=== PATIENT | female | born 1930 | race Caucasian/White ===

== ENCOUNTER 2016-04-24 19:47 | Emergency (ER) | payer MEDICARE ==
[~2016-04-24] VITALS: Ht 157.4 cm; Wt 49.9 kg
[~2016-04-24 19:47] MED LIST: ALAVERT10 M1 PO; ALENDRONATE SOD70 M1 PO; AMOXICILLIN500 M3 PO; ARICEPT ODT10 MG PO; ARICEPT10 M1 PO; ARICEPT10 MG PO; ASPIR LOW81 MG PO; ASPIRIN81 M1 PO; AUGMENTIN 500 M1 TAB PO; AUGMENTIN 875875 MG PO; BESIVANCE 5 ML5 ML OP; CARDIZEM CD120 MG PO; CARDIZEM CD180 MG PO; CARDIZEM CD240 MG PO; CATAPRES0.1 MG PO; COUMADIN1 M1 PO; COUMADIN2 M1 PO; COUMADIN2 MG PO; COUMADIN2.5 M1 PO; COUMADIN4 M2 PO; COUMADIN5 M2 PO; DILTIAZEM CD240 MG PO; DOXYCYCLINE100 M3 PO; DUREZOL 5 ML5 ML OP; ECOTRIN325 M1 PO; ECOTRIN325 MG PO; FERROUS SULFAT325 MG PO; FLAGYL500 MG PO; FUROSEMIDE20 M1 PO; FUROSEMIDE20 MG PO; HYDR12.5C PO; IRON325 M1 PO; LASIX20 MG PO; LEVAQUIN750 M1 PO; LEVOFLOXACIN500 MG PO; LISINOPRIL AND1 TA2 PO; LISINOPRIL10 MG PO; LISINOPRIL20 MG PO; LISINOPRIL40 MG PO; MACROBID100 M1 PO; MACRODANTIN100 M1 PO; MACRODANTIN100 MG PO; NITROFURANTOIN100 M9 PO; NKHM; OYSTER SHELL C1 EAC2 PO; PREDNISONE10 MG PO; PROLENSA3 ML OP; RISPERDAL1 MG PO; SIMBRINZA 1%-0.28 ML OP; TYLENOL W/CODEI1 TA4 PO; TYLENOL325 M2 PO; VICODIN 5/500 505 MG PO; VOLTAREN GEL1% TP; WARFARIN2 MG PO; ZESTRIL10 MG PO
[2016-04-24] MEDS ORDERED: TYLENOL325 M2 PO (19:57)
[2016-04-24 20:41] LABS: BASO % 0.4 % (0.0-1.0); EOS # 0.1 10*3/uL (0.0-0.4); EOS % 1.7 % (1.0-4.0); HEMATOCRIT 33.9 % (37.0-47.0); HEMOGLOBIN 10.8 g/dl (12.0-16.0); LYMPH % 20.4 % (27.0-41.0); MEAN CELL VOLUME 100.9 fl (81.0-99.0); MEAN CORPUSCULAR HGB 32.1 pg (27.0-31.0); MEAN CORPUSCULAR HGB CONC 31.9 g/dl (33.0-37.0); MEAN PLATELET VOLUME 9.6 fl (9.6-12.3); MONO # 0.5 10*3/uL (0.1-1.0); MONO % 9.8 % (3.0-9.0); NEUT # 3.2 10*3/uL (2.3-7.9); NEUT % 67.5 % (47.0-73.0); PLATELET COUNT AUTOMATED 133 10*3/uL (130-400); RED BLOOD COUNT 3.36 10*6/uL (4.10-5.10); RED CELL DISTRI WIDTH 13.2 % (0-14.5); WHITE BLOOD COUNT 4.8 10*3/uL (4.8-10.8)
[2016-04-24 20:58] LABS: ALBUMIN 3.6 gm/dl (3.1-4.5); ALKALINE PHOSPHATASE 142 U/L (45-117); BILIRUBIN, TOTAL 0.4 mg/dl (0.2-1.0); BUN 24 mg/dl (7-24); C-REACTIVE PROTEIN 1.84 MG/DL (0-0.3); CARBON DIOXIDE 24 mmol/L (21-32); CHLORIDE 111 mmol/L (98-107); EST GLOM FILT AFRICAN AMERICAN > 60 ml/min; GLUCOSE 82 mg/dL (65-99); POTASSIUM 4.5 mmol/L (3.5-5.1); SGOT/AST 18 IU/L (3-35); SGPT/ALT 18 U/L (12-78); SODIUM 146 mmol/L (136-145); TOTAL PROTEIN 6.6 gm/dL (6.4-8.2)
[2016-04-24 20:59] LABS: BILIRUBIN NEGATIVE (NEGATIVE); BLOOD NEGATIVE (NEGATIVE); CLARITY CLEAR (CLEAR); COLOR YELLOW (YELLOW); GLUCOSE NEGATIVE (NEGATIVE); KETONE TRACE (NEGATIVE); LEUKO ESTERASE NEGATIVE (NEGATIVE); NITRITE NEGATIVE (NEGATIVE); PH 5.5 (5.0-9.0); PROTEIN TRACE (NEGATIVE); UROBILINOGEN 0.2 E.U./dl (0.2-1.0)
[2016-04-24 20:59] LABS: TROPONIN I < 0.015 ng/ml (<0.5)
[2016-04-24 21:11] LABS: MUCOUS TRACE; RBC 0-2 rbc/hpf (0-2); URINE REFLEX COMMENT NO (NO)
[2016-04-24] MEDS ORDERED: ZITHROMAX250 MG PO (22:21)
[2016-04-24] MEDS ORDERED: ROBITUSSIN DM 105 ML PO (22:21)
[2016-05-03] MEDS ORDERED: TYLENOL W/ CODEI5 ML PO (02:07)
[2016-05-13] MEDS ORDERED: SIMVASTATIN10 MG PO (14:58)
[2016-05-13] MEDS ORDERED: MARINOL2.5 M1 PO ×2 (14:59→15:00)
== END 2016-04-24 23:17 | disposition home or self-care (01) ==
LOC: ED 19:47
PROVIDERS: Emergency Medicine Emergency Medical Services
DX: J40 Bronchitis, not specified as acute or chronic (principal); M19.90 Unspecified osteoarthritis, unspecified site; F17.200 Nicotine dependence, unspecified, uncomplicated; I10 Essential (primary) hypertension; Z79.01 Long term (current) use of anticoagulants; Z79.82 Long term (current) use of aspirin

== ENCOUNTER → 2016-08-17 | Outpatient (CLI) | payer MEDICARE, MEDICAID ==
[~2016-08-17] MED LIST changes: +MARINOL2.5 M1 PO; +NAMENDA-28 PO; +PROVENTIL0.09 MG/A1 INH; +ROBITUSSIN DM 105 ML PO; +SIMVASTATIN10 MG PO; +TRAZODONE50 MG PO; +TYLENOL W/ CODEI5 ML PO; +ZITHROMAX250 MG PO
[2016-08-17 16:44] LABS: HEMATOCRIT 39.8 % (37.0-47.0); HEMOGLOBIN 12.6 g/dl (12.0-16.0); MEAN CELL VOLUME 95.4 fl (81.0-99.0); MEAN CORPUSCULAR HGB 30.2 pg (27.0-31.0); MEAN CORPUSCULAR HGB CONC 31.7 g/dl (33.0-37.0); MEAN PLATELET VOLUME 9.3 fl (9.6-12.3); RED BLOOD COUNT 4.17 10*6/uL (4.10-5.10); RED CELL DISTRI WIDTH 14.3 % (0-14.5); WHITE BLOOD COUNT 5.2 10*3/uL (4.8-10.8)
[2016-08-17 17:00] LABS: ALBUMIN 3.5 gm/dl (3.1-4.5); ALKALINE PHOSPHATASE 133 U/L (45-117); BILIRUBIN, TOTAL 0.5 mg/dl (0.2-1.0); BUN 21 mg/dl (7-24); CARBON DIOXIDE 27 mmol/L (21-32); CHLORIDE 109 mmol/L (98-107); EST GLOM FILT AFRICAN AMERICAN > 60 ml/min; GLUCOSE 97 mg/dL (65-99); POTASSIUM 3.8 mmol/L (3.5-5.1); SGOT/AST 23 IU/L (3-35); SGPT/ALT 20 U/L (12-78); SODIUM 147 mmol/L (136-145); TOTAL PROTEIN 6.7 gm/dL (6.4-8.2)
== END | disposition home or self-care (01) ==
LOC: LAB 15:48
PROVIDERS: Family Medicine
DX: J44.9 Chronic obstructive pulmonary disease, unspecified (principal); I51.7 Cardiomegaly; D64.9 Anemia, unspecified; E55.9 Vitamin D deficiency, unspecified; I48.91 Unspecified atrial fibrillation; I10 Essential (primary) hypertension; J90 Pleural effusion, not elsewhere classified; J98.11 Atelectasis; Z95.0 Presence of cardiac pacemaker

== ENCOUNTER 2016-08-18 14:47 | Inpatient (IN) | payer MEDICARE, MEDICAID ==
[~2016-08-18] VITALS: Ht 149.9 cm; Wt 52.2 kg
--- NOTE | ~2016-08-18 | PR ---
[place], [place] PROGRESS NOTE NAME: OLEG BURGESS [facility] #: [id number] UNIT #: [id number] ROOM: 524 DOCTOR: GAVI MOSES MD,JENNIFER BIRTHDATE: [birth year] DOS: 08/23/2016 SUBJECTIVE: She has been comfortably resting on the bed without any distress. Denies symptoms of chest pain, coughing or any sputum expectoration. OBJECTIVE: VITAL SIGNS: Shows normal temperature, respiratory rate 20, heart rate 70, blood pressure 123/64. The pulse oxygen saturation of the patient recorded on room air 98% saturation. HEENT: Showed no acute change. NECK: Supple. CARDIOVASCULAR SYSTEM: S1, S2 is audible. LUNGS: Noted without any crackles, rhonchi, or wheezing. ABDOMEN: Soft, nontender. LABORATORY DATA: Chest x-ray of the patient that was done this morning shows a small right pleural fluid without any significant increase patient after thoracentesis. Left lung for the patient noted essentially clear. Pacemaker noted in place. IMPRESSION: The patient with resolving congestive heart failure, pleural fluid, status post thoracentesis the patient and the respiratory complaints progressively. Pneumonia was also suspected which has been treated with antibiotics. PLAN OF TREATMENT: No changes in plan of management. Discharge planning for the patient will be started on the patient for discharge to the long term facility. In the meantime, other previous therapy, plan of management to be continued. Antibiotics could be discontinued the patient prior to the discharge. Continue diuretic therapy. JENNIFER GATICA MD CM:PNTRANS [phone] JENNIFER MOSES MD 08/23/162047 interface
--- NOTE | ~2016-08-18 | PR ---
[place], [place] PROGRESS NOTE NAME: OLEG BURGESS [facility] #: [id number] UNIT #: [id number] ROOM: 524 DOCTOR: GUANAKITO LOCKETT MD BIRTHDATE: [birth year] DOS: 08/20/2016 SUBJECTIVE: The patient is about the same, does not have any new complaints. She is pretty emotional this morning and crying. OBJECTIVE: VITAL SIGNS: Pressure is 134/82, pulse of , respirations 20, temperature 98.4. LUNGS: Diminished breath sounds. HEART: Irregular. ABDOMEN: Soft. EXTREMITIES: Stasis dermatitis noticed. CT scan shows a moderate right pleural effusion, compressive atelectasis, nodular densities in the left upper lobe, right upper lobe. ASSESSMENT AND PLAN: 1. The patient with a moderate size right-sided pleural effusion with possible inflammatory nodules with negative blood cultures. The patient is on IV antibiotics. Dr. Escobedo was consulted for possible thoracentesis. The plan is to continue antibiotics and possibly discharge her to home and follow up with Dr. Escobedo as an outpatient for possible further treatment plan for the effusion. 2. Vascular dementia with anxiety disorder, on medications. 3. Hypertension, controlled. 4. Chronic atrial fibrillation, not a candidate for Coumadin. GUANAKITO LOCKETT MD CM:PNTRANS [phone] GUANAKITO LOCKETT MD 08/21/16217 interface
--- NOTE | ~2016-08-18 | PR ---
[place], [place] PROGRESS NOTE NAME: OLEG BURGESS UNIT #: [id number] ROOM: 524 DOCTOR: YOBANI BENTON MD BIRTHDATE: [birth year] DOS: 08/22/2016 SUBJECTIVE: The patient is pleasantly confused. No new complaints. OBJECTIVE: GENERAL APPEARANCE: The patient is alert and oriented x 3, in no visible distress. Generalized weakness. VITAL SIGNS: Blood pressure 138/73, heart rate 68 beats per minute, breathing 20 times per minute, temperature 98.2 degrees Fahrenheit. HEENT AND NECK: Exam within normal limits. CARDIOVASCULAR SYSTEM: Heart rate is regular in rate and rhythm. S1 and S2 normally audible. LUNGS: Clear to auscultation. ABDOMEN: Soft, nontender. No obvious organomegaly. Bowel sounds are present. EXTREMITIES: Without significant cyanosis or edema. IMPRESSION: 1. Generalized weakness and failure to thrive. I will keep her on physical therapy. 2. Large pleural effusion on the right side, status post thoracentesis by Dr. Escobedo of 750 mL with improvement in the chest x-ray. 3. 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 4. Benign essential hypertension with controlled blood pressures. 5. Chronic atrial fibrillation with controlled heart rate. The patient not a good candidate for anticoagulation. 6. Body fluid cultures are still pending. YOBANI BENTON MD CM:PNTRANS [phone] YOBANI BENTON MD 08/23/16 0145 interface
--- NOTE | ~2016-08-18 | PROC NOTE ---
[place], [place] PROCEDURE NOTE NAME: OLEG [facility] #: [id number] UNIT #: [id number] ROOM: 524 DOCTOR: GAVI MOSES MD,JENNIFER BIRTHDATE: [birth year] DOS: 08/21/2016 PROCEDURE: Right-sided thoracentesis. PREOPERATIVE DIAGNOSIS: Moderate size right pleural fluid. POSTOPERATIVE DIAGNOSES: Successful removal of 750 mL of pleural fluid from the right pleural space without any difficulty. COMPLICATIONS: None. PROCEDURE DESCRIPTION: Informed consent obtained from the patient's family members. The patient was placed in the sitting position. Local anesthetic was administered for the patient after the fluid was localized for the patient with ultrasound of the right posterior chest wall. Skin was cleaned with chlorhexidine solution. During administration of local anesthetic for this patient, right pleural space was entered. A small amount of fluid was aspirated after the small incision given in the skin. [place] thoracentesis catheter introduced through the incision into the right pleural space without any difficulty. 750 mL of pleural fluid was obtained for the patient in the syringe and the vacuum bottle for the patient without any difficulty. Chest x-ray for this patient was also done post-procedure showed marked improvement in the aeration of the lungs with reexpansion of the lung with a residual small pleural fluid for the patient with possibility of compression atelectasis or infiltration. Pleural fluid was sent for all the testing including cytology. JENNIFER GATICA MD CM:PROCNOTE:PROCEDURE NOTE [phone] JENNIFER MOSES MD
--- NOTE | ~2016-08-18 | PR ---
[place], [place] PROGRESS NOTE NAME: OLEG BURGESS [facility] #: [id number] UNIT #: [id number] ROOM: 524 DOCTOR: GAVI MOSES MD,JENNIFER BIRTHDATE: [birth year] DOS: 08/21/2016 SUBJECTIVE: She has been noted comfortable at this time without any distress. The patient has been noted with history of chronic dementia, does not have any specific complaints described. She was planned for thoracentesis to be done today for the right pleural fluid. OBJECTIVE: VITAL SIGNS: For the patient, which is recorded showed the temperature noted normal, respiratory rate 20, heart rate of 72, blood pressure 146/60. Pulse oxygen saturation of the patient noted on room air 94% saturation. HEENT: Showed no acute change. NECK: Supple. CARDIOVASCULAR: S1, S2 audible. LUNGS: Showed decreased breath sounds noted in the right lower lung. ABDOMEN: Soft, nontender. EXTREMITIES: The patient was noted without any edema, clubbing, or cyanosis. IMPRESSION: The patient who has been currently admitted to the hospital noted with incidental finding of pulmonary nodule, noted with right pleural fluid while treated for possible pneumonia with other abnormal respiratory symptoms. PLAN OF TREATMENT: Thoracentesis will be done at the bedside. The ultrasound of the chest was done for the patient and moderate sized pleural fluid pocket was isolated. Consent has been already obtained from the patient and family members for the procedure. Other treatment changes will be done for the patient after that the thoracentesis as necessary. JENNIFER GATICA MD CM:PNTRANS [phone] JENNIFER MOSES MD 08/22/16 0452 interface
--- NOTE | ~2016-08-18 | PR ---
[place], [place] PROGRESS NOTE NAME: OLEG BURGESS UNIT #: [id number] ROOM: 524 DOCTOR: JENNIFER GRIMM MD BIRTHDATE: [birth year] DOS: 08/22/2016 PULMONARY FOLLOWUP NOTE SUBJECTIVE: She has thoracentesis done yesterday. The patient has been noted with dementia, does not state any acute complaints. However, resting comfortably, sitting on her bed. OBJECTIVE: VITAL SIGNS: For the patient, which were recorded showed the temperature noted normal, respiratory rate 20, heart rate 68, blood pressure 138/73. Pulse oxygen saturation on room air was 98% saturation recorded. HEENT: Examination shows no acute change. NECK: Supple. CARDIOVASCULAR SYSTEM: S1, S2 audible. LUNGS: Noted with scattered crackles of the lungs in the lower portion of the lungs. ABDOMEN: Soft, nontender. LABORATORY DATA: Pleural fluid analysis of the patient, WBC count was noted as 117 with greater differentials. Glucose 118, total protein of 2.5, LDH of 93, cholesterol less than 50 and albumin 1.7. Chest x-ray postprocedure shows improvement in the aeration of the lung for the patient was noted without any pneumothorax with small remaining pleural fluid area of atelectasis of the patient infiltration. IMPRESSION: 1. The patient who has been currently noted with improvement in respiratory symptoms with current fluid noted consistent with transudative effusion, pending cytology results. Area of compression atelectasis for the patient with possibility of acute pneumonia has been also considered as well. 2. Incidental finding of pulmonary nodule of the patient significance at this time unknown, will be assessed outpatient. PLAN OF TREATMENT: Repeat another chest x-ray in the morning for this patient and then after that discharge planning for the patient will be started for possible discharge. Other supportive therapy, plan and management for the patient to be continued as previously. No other changes in the medical treatment will be necessary. [place], [place] PROGRESS NOTE NAME: OLEG BURGESS UNIT #: [id number] ROOM: 524 DOCTOR: JENNIFER GRIMM MD BIRTHDATE: [birth year] JENNIFER GATICA MD CM:PNTRANS [id number] JENNIFER MOSES MD 08/22/16 2332 interface
--- NOTE | ~2016-08-18 | CON ---
[place], [place] REPORT OF CONSULTATION [facility] [id number] UNIT #: [id number] ROOM: 524 DOCTOR: GAVI MOSES MD,JENNIFER BIRTHDATE: [birth year] DOS: 08/19/2016 PULMONARY CONSULTATION EVALUATION AND MANAGEMENT REQUESTING PHYSICIAN: Dr. Arabella Rendon. REASON FOR CONSULTATION: Assess the patient for abnormal finding in CT scan of the chest with the pneumonia and also findings of pleural effusion. HISTORY OF PRESENT ILLNESS: An 85-year-old white female unknown to me from the past, admitted to the hospital under care of Dr. Arabella Rendon. The patient lives at home helped by her daughter. The patient is unable to give me any history at this time. She has been appeared to be sleepy at this time, does not answer any questions. She has been assessed in the Emergency Room upon presentation as the patient's recent chest x-ray was described as findings of acute pneumonia. The patient was also noted with temperature elevation as well as coughing as well as rhinorrhea described by the daughter reported in the history. All the history has been obtained for the patient current review of the medical record, documentation for this hospitalization by the other physicians and the nursing staff. The patient has been treated as an outpatient for the abnormal chest x-ray, pneumonia by the primary care physician with the Levaquin. The patient took about 9 days of Levaquin 500 mg daily. REVIEW OF SYSTEMS: Could not be performed since the patient unable to communicate verbally or give me any history by herself. PAST MEDICAL HISTORY: 1. Reported presumed as for pneumonia. 2. History of essential hypertension. 3. History of cardiac dysrhythmia for this patient with pacemaker insertion. 4. History of dementia. 5. History of anxiety and depression. 6. Chronic anticoagulation for the patient most likely with history of atrial fibrillation. SOCIAL HISTORY: The patient lives at home with the daughter. There was no past tobacco use, alcohol or illicit drug use reported. PAST SURGICAL HISTORY: 1. Reported as pacemaker insertion. 2. Cataract extraction and lens implantation. FAMILY HISTORY: Unknown described at this time. MEDICATIONS: Medications which were recorded on admission as use of aspirin, Cardizem-CD, ferrous sulfate, Lasix, Aricept, Namenda, Tylenol, simvastatin, Proventil HFA inhaler, Levaquin, trazodone, and Coumadin. Current medications administered were noted as use of trazodone, aspirin, Cardizem-CD, Aricept, Marinol, ferrous sulfate, Lasix oral, Namenda, [place], [place] REPORT OF CONSULTATION NAME: OLEG BURGESS UNIT #: [id number] ROOM: 524 DOCTOR: CARRIE GRIMM MDM BIRTHDATE: [birth year] simvastatin, IV Zosyn, DuoNeb, Mucinex, and doxycycline. The patient was started on doxycycline and the Rocephin yesterday that has been discontinued today. DRUG ALLERGIES: Noted for no known drug allergies. CODE STATUS: DNR-CC. PHYSICAL EXAMINATION: GENERAL: This is an elderly 85-year-old female who has been currently noted lying in the bed. She appeared to be sleepy, does not show signs of respiratory distress. Height of the patient recorded on admission by the nursing staff 4 feet 11 inches, weight 115 pounds, BMI 23.2. VITAL SIGNS: For the patient which were recorded shows the temperature of the patient was noted as normal, respiratory rate of 18-20, heart rate of 78-86, blood pressure 186/86-152/82. Pulse oxygen saturation on room air was 97% saturation. HEENT: Examination shows head was atraumatic. Eyes nonicterus. NECK: Supple. CARDIOVASCULAR: S1, S2 is audible. LUNGS: The patient was noted without any wheezing. Decreased breath sounds with crackles of the lungs for this patient was noted. ABDOMEN: Soft, nontender and flat. EXTREMITIES: Showed no edema, clubbing or cyanosis. MUSCULOSKELETAL: No deformities. SKIN: Noted without any lesions or ulcers. LABORATORY DATA: CBC of the patient that was done on 08/17/2016 showed WBC count 5.2, hemoglobin and hematocrit normal, platelet count was normal. CMP of the patient on 08/17/2016, BUN 21, creatinine was normal, glucose of 97, chloride of 109. Lactic acid 1.3 yesterday noted. CBC yesterday, WBC count 4.4, hemoglobin, hematocrit and platelet count for the patient was noted as normal. CMP of the patient on 08/18/2016, was noted normal BUN and creatinine. Chest x-ray of the patient that was done, 2-views as an outpatient was reported as finding of pleural fluid for the patient, possibly pneumonia and congestive heart failure. Chest x-ray of the patient that was done on 08/18/2016, essentially showed the similar finding. Pacemaker noted in place. CT scan of the chest that was done for the patient yesterday was noted as abnormal finding of moderate right-sided pleural effusion. A 1 cm left upper lung nodule was noted and 1.2 cm right upper lung nodule for the patient was also noted new since compared with the previous examination for the patient. The findings were compared with the CT scan of 11/11/2014. The mediastinal structure of the patient could not be clearly assessed because of lack of the IV contrast for this test. IMPRESSION: 1. The patient who has been currently admitted to the hospital because of failure of outpatient treatment, noted with significant abnormal finding on the CT scan of the chest. The patient was noted with pleural fluid, possible compression atelectasis, pneumonia cannot be completely excluded in the right [place], [place] REPORT OF CONSULTATION [facility]: [id number] UNIT #: [id number] ROOM: 524 DOCTOR: JENNIFER GRIMM MD BIRTHDATE: [birth year] lower lobe. Incidental finding of a nodule for the patient noted in the left upper and in the left upper lobe for this patient as well. Possibility of lymphadenopathy for this patient cannot be excluded completely for this patient in the right hilar area because of lack of IV contrast. 2. DNR comfort care status. 3. Chronic anticoagulation with history of atrial fibrillation for the patient, known as well. 4. Pulmonary nodule of the patient in the lung one each side for the patient, 1 cm or greater. Possibility a malignancy for this patient as the etiology remains in consideration. PLAN OF TREATMENT: Continue current empirically treating pneumonia. If agreeable by the family members of the patient, certainly the pleural fluid could be removed with thoracentesis with ultrasound guidance for further analysis whether it is related to the pneumonia for this patient or . The patient was noted essentially comfortable without any distress, so symptomatic management of thoracentesis is not advised. Supportive plan of management. Continue current antibiotic for the patient's treatment at this time. Usual care. All other supportive plan of therapy and management for the patient as well. Supportive care, plan of management. Further treatment changes will be done based on progression of illness. Thanks for allowing me to participate in the care of this patient. JENNIFER GATICA MD CM:CONSTR:REPORT OF CONSULTATION 1251 08/20/16 0726 interface
--- NOTE | ~2016-08-18 | DS ---
[place], [place] DISCHARGE SUMMARY NAME: OLEG BURGESS [facility] #: [id number] UNIT #: [id number] ROOM: 524 DOCTOR: GUANAKITO LOCKETT MD BIRTHDATE: [birth year] DOS: HOSPITAL COURSE: This patient is an 85-year-old very pleasant, but thoroughly confused patient who was admitted yesterday with complaints of cough. The patient was seen by her PCP recently, a chest x-ray was ordered. After completion of antibiotics it is noticed that the chest x-ray continued to show pneumonia so the patient was sent to the Emergency Room where she was evaluated and was admitted. She denies having any chest pains, palpitations this morning, the patient appears quite comfortable in rest and she does not have any distress at all. She is not able to give me any history at all. She does not know why she is here. PAST MEDICAL HISTORY: Significant for, 1. Dementia. 2. Chronic atrial fibrillation. 3. Frailty with falls. 4. History of renal failure. MEDICATIONS: She is currently on are breathing treatments, Tylenol, aspirin, diltiazem, donepezil, , Marinol, iron, Lasix, Namenda, simvastatin. SOCIAL HISTORY: Nonsmoker, does not use any alcohol. She lives with her daughter. She is not able to tell me where she lives either. PHYSICAL EXAMINATION: GENERAL: The patient is awake and alert, but not oriented to time, place or person. VITAL SIGNS: Graphic trend shows blood pressure 142/80, pulse of 76 irregular, respirations 14, afebrile. HEAD AND NECK: Within normal limits. LUNGS: Diminished breath sounds. No wheezes, rales or rhonchi heard. HEART: Regular. ABDOMEN: Obese, soft. EXTREMITIES: Without any edema. IMAGIN. Chest x-ray showed pneumonia. The patient underwent a CT of the chest in the Emergency Room, which showed a left pleural effusion. I will ask Dr. Escobedo as to see whether the patient would benefit from thoracentesis. 2. Dementia, possible Alzheimer's, late onset. The patient is on medications, which are being cholinesterase inhibitors, which are being continued. 3. Chronic atrial fibrillation is no longer on Coumadin because of high risk for fall. She is a poor candidate. [place], [place] DISCHARGE SUMMARY NAME: OLEG BURGESS UNIT #: [id number] ROOM: 524 DOCTOR: GUANAKITO LOCKETT MD BIRTHDATE: [birth year] GUANAKITO LOCKETT MD CM:DISCHALEC [id number] GUANAKITO LOCKETT MD 08/20/16 0938 MANJIT BOOTH [facility].MASHA
--- NOTE | ~2016-08-18 | PR ---
[place], [place] PROGRESS NOTE NAME: OLEG BURGESS UNIT #: [id number] ROOM: 524 DOCTOR: YOBANI BENTON MD BIRTHDATE: [birth year] DOS: 08/21/2016 SUBJECTIVE: The patient had 750 mL of pleural fluid removed by thoracentesis on the right side by Dr. Escobedo today. OBJECTIVE: VITAL SIGNS: Blood pressure 104/52, heart rate of 67 beats per minute, breathing 20 times per minute, temperature 98.3 degrees Fahrenheit. GENERAL APPEARANCE: The patient is alert and oriented x 3, in no visible distress. Generalized weakness. HEENT AND NECK: Exam within normal limits. CARDIOVASCULAR SYSTEM: Heart rate is regular in rate and rhythm. S1 and S2 normally audible. LUNGS: Clear to auscultation. ABDOMEN: Soft, nontender. No obvious organomegaly. Bowel sounds are present. EXTREMITIES: Without significant cyanosis or edema. IMPRESSION: 1. Large right pleural effusion, status post thoracentesis. The patient is breathing better now. Dr. Escobedo, the budget assistant, is following. 2. Late onset of Alzheimer's type dementia. 3. Benign essential hypertension with controlled blood pressures. 4. Chronic atrial fibrillation. The patient deemed as not a good candidate for anticoagulation with Coumadin as per Dr. Rendon's notes. YOBANI BENTON MD CM:PNTRANS [phone] YOBANI BENTON MD 08/22/16 0642 interface
--- NOTE | ~2016-08-18 | DS ---
[place], [place] DISCHARGE SUMMARY [id number] #: [id number] ROOM: 524 DOCTOR: YOBANI BENTON MD BIRTHDATE: [birth year] DOS: 08/23/2016 DISCHARGE DIAGNOSES: 1. Large pleural effusion, status post thoracentesis, 750 mL of transudative fluid by Dr. Escobedo. 2. Late onset Alzheimer's type dementia and mental confusion. 3. Benign essential hypertension. 4. Chronic atrial fibrillation with controlled heart rates. The patient is not a good candidate for anticoagulation. 5. Advanced disability and failure to thrive. The patient lives at home with the help of family and visiting nurses. 6. Disability and recurrent falls. HOSPITAL COURSE: The patient was admitted by Dr. Arabella Rendon when she presented with complaints of cough and shortness of breath. The patient was found to have large right-sided pleural effusion, which was drained by Dr. Escobedo, the designer/writer for 750 mL of transudative fluid thought to be secondary to CHF. The patient is breathing normally now and she is pleasantly confused. There are no signs of any infection and the patient has been cleared for discharge by Dr. Escobedo to home where she was taken care of by her family and caretakers and visiting nurses, which have been consulted. Late onset Alzheimer's type dementia with mental confusion. The patient is pleasantly confused. Chronic atrial fibrillation with controlled heart rates. The patient is not a good candidate for anticoagulation because of recurrent falls and injuries. Benign essential hypertension with controlled blood pressures. Generalized weakness and adult failure to thrive. The patient was kept on physical therapy. LABORATORY DATA: Blood cultures were negative. Chest x-ray showed resolution of large right pleural effusion. Body fluid cultures are still pending, but white cell count from the body fluid was only 117. DISCHARGE MANAGEMENT: Trazodone 50 mg at bedtime p.r.n. for sleep, donepezil 10 mg daily, simvastatin 10 mg a day, aspirin 325 mg a day, diltiazem CD 240 mg a day, ferrous sulfate 325 mg daily, furosemide 20 mg a day, memantine 10 mg b.i.d., DuoNeb q.i.d. p.r.n. for shortness of breath, Marinol 2.5 mg daily. Follow up with PCP within a week of discharge. [place], [place] DISCHARGE SUMMARY NAME: OLEG BURGESS UNIT #: [id number] ROOM: 524 DOCTOR: YOBANI BENTON MD BIRTHDATE: [birth year] YOBANI BENTON MD CM:DISCHARG 1643 [id number] YOBANI BENTON MD 08/23/161907 interface
--- NOTE | ~2016-08-18 | WRIGHTHP ---
[place], [place] PATIENT HISTORY AND PHYSICAL EXAM NAME: OLEG BURGESS [facility] #: [id number] UNIT #: [id number] ROOM: 524 DOCTOR: GUANAKITO LOCKETT MD BIRTHDATE: [birth year] DOS: HOSPITAL COURSE: This patient is an 85-year-old very pleasant, but thoroughly confused patient who was admitted yesterday with complaints of cough. The patient was seen by her PCP recently, a chest x-ray was ordered. After completion of antibiotics it is noticed that the chest x-ray continued to show pneumonia so the patient was sent to the Emergency Room where she was evaluated and was admitted. She denies having any chest pains, palpitations this morning, the patient appears quite comfortable in rest and she does not have any distress at all. She is not able to give me any history at all. She does not know why she is here. PAST MEDICAL HISTORY: Significant for, 1. Dementia. 2. Chronic atrial fibrillation. 3. Frailty with falls. 4. History of renal failure. MEDICATIONS: She is currently on are breathing treatments, Tylenol, aspirin, diltiazem, donepezil, , Marinol, iron, Lasix, Namenda, simvastatin. SOCIAL HISTORY: Nonsmoker, does not use any alcohol. She lives with her daughter. She is not able to tell me where she lives either. PHYSICAL EXAMINATION: GENERAL: The patient is awake and alert, but not oriented to time, place or person. VITAL SIGNS: Graphic trend shows blood pressure 142/80, pulse of 76 irregular, respirations 14, afebrile. HEAD AND NECK: Within normal limits. LUNGS: Diminished breath sounds. No wheezes, rales or rhonchi heard. HEART: Regular. ABDOMEN: Obese, soft. EXTREMITIES: Without any edema. IMAGIN. Chest x-ray showed pneumonia. The patient underwent a CT of the chest in the Emergency Room, which showed a left pleural effusion. I will ask Dr. Escobedo as to see whether the patient would benefit from thoracentesis. 2. Dementia, possible Alzheimer's, late onset. The patient is on medications, which are being cholinesterase inhibitors, which are being continued. 3. Chronic atrial fibrillation is no longer on Coumadin because of high risk for fall. She is a poor candidate. [place], [place] PATIENT HISTORY AND PHYSICAL EXAM NAME: OLEG BURGESS UNIT #: [id number] ROOM: 524 DOCTOR: GUANAKITO LOCKETT MD BIRTHDATE: [birth year] GUANAKITO LOCKETT MD CM:HISPHYS:PATIENT HISTORY AND PHYSICAL EXAMINATION [id number] GUANAKITO LOCKETT MD 08/20/16 0929 interface
--- NOTE | ~2016-08-18 | PR ---
[place], [place] PROGRESS NOTE [id number] UN[facility] #: [id number] ROOM: 524 DOCTOR: GAVI MOSES MD,JENNIFER BIRTHDATE: [birth year] DOS: 08/20/2016 SUBJECTIVE: The patient noted much more awake and alert this morning. He has been noted chest congestion. Shortness of breath has been noted decreased. Mental status has been noted much improved. There were no symptoms of chest pain. The cough has been noted with small amount of sputum expectoration described by the patient. OBJECTIVE: VITAL SIGNS: At this time, normal temperature, respiratory rate 20, heart rate 68, blood pressure 134/82. Pulse oxygen saturation on room air 94% saturation. HEENT: Examination shows no acute change. NECK: Supple. CARDIOVASCULAR: S1, S2 audible. LUNGS: The patient was noted with decreased breath sound previously in the right lower lung. Scattered crackles. ABDOMEN: Soft, nontender. LABORATORY DATA: There were no labs done today. IMPRESSION: 1. The patient with pulmonary nodules, which were noted in the lungs for this patient as well as pleural fluid on the right lung as well. 2. History of chronic dementia for this patient as well. 3. Cardiac dysrhythmias. PLAN OF TREATMENT: Thoracentesis could be done for this patient for further medical management for this patient and the assessment of pleural fluid. Continuation of current antibiotics for this patient. Monitoring of the respiratory status of the patient closely. Consent needs to be obtained from the family members of the patient because of history of dementia. Other supportive therapy, plan of management, and care. JENNIFER GATICA MD CM:PNTRANS [id number] JENNIFER MOSES MD 08/21/16 0604 interface
[~2016-08-18 14:47] MED LIST changes: -NAMENDA-28 PO; -PROVENTIL0.09 MG/A1 INH; -TRAZODONE50 MG PO
[2016-08-18 14:54] VITALS: BP 137/73
[2016-08-18] MEDS ORDERED: PROVENTIL0.09 MG/A1 INH (15:00)
[2016-08-18] MEDS ORDERED: LEVOFLOXACIN500 MG PO (15:01)
[2016-08-18] MEDS ORDERED: NAMENDA-28 PO (15:04)
[2016-08-18] MEDS ORDERED: TRAZODONE50 MG PO (15:04)
[2016-08-18 15:50] LABS: BASO % 0.5 % (0.0-1.0); EOS # 0.1 10*3/uL (0.0-0.4); EOS % 1.4 % (1.0-4.0); HEMATOCRIT 41.6 % (37.0-47.0); HEMOGLOBIN 13.2 g/dl (12.0-16.0); LYMPH # 0.8 10*3/uL (1.3-4.4); LYMPH % 17.8 % (27.0-41.0); MEAN CELL VOLUME 95.6 fl (81.0-99.0); MEAN CORPUSCULAR HGB 30.3 pg (27.0-31.0); MEAN CORPUSCULAR HGB CONC 31.7 g/dl (33.0-37.0); MEAN PLATELET VOLUME 9.3 fl (9.6-12.3); MONO # 0.3 10*3/uL (0.1-1.0); MONO % 6.8 % (3.0-9.0); NEUT # 3.2 10*3/uL (2.3-7.9); NEUT % 72.8 % (47.0-73.0); PLATELET COUNT AUTOMATED 179 10*3/uL (130-400); RED BLOOD COUNT 4.35 10*6/uL (4.10-5.10); RED CELL DISTRI WIDTH 14.2 % (0-14.5); WHITE BLOOD COUNT 4.4 10*3/uL (4.8-10.8)
[2016-08-18 16:03] LABS: ALBUMIN 3.6 gm/dl (3.1-4.5); ALKALINE PHOSPHATASE 134 U/L (45-117); BILIRUBIN, TOTAL 0.6 mg/dl (0.2-1.0); BUN 20 mg/dl (7-24); CARBON DIOXIDE 27 mmol/L (21-32); CHLORIDE 107 mmol/L (98-107); CPK 38 U/L (26-192); EST GLOM FILT AFRICAN AMERICAN > 60 ml/min; GLUCOSE 96 mg/dL (65-99); LDH 219 U/L (84-246); MAGNESIUM 2.2 mg/dL (1.5-2.1); POTASSIUM 3.7 mmol/L (3.5-5.1); SGOT/AST 24 IU/L (3-35); SGPT/ALT 18 U/L (12-78); SODIUM 145 mmol/L (136-145); TOTAL PROTEIN 6.9 gm/dL (6.4-8.2)
[2016-08-18 16:04] LABS: CKMB 1.4 ng/ml (0.5-3.6); TROPONIN I < 0.015 ng/ml (<0.045)
[2016-08-18 16:37] LABS: BILIRUBIN NEGATIVE (NEGATIVE); BLOOD NEGATIVE (NEGATIVE); CLARITY CLEAR (CLEAR); COLOR YELLOW (YELLOW); GLUCOSE NEGATIVE (NEGATIVE); KETONE NEGATIVE (NEGATIVE); LEUKO ESTERASE NEGATIVE (NEGATIVE); NITRITE NEGATIVE (NEGATIVE); PH 5.5 (5.0-9.0); PROTEIN NEGATIVE (NEGATIVE); SPECIFIC GRAVITY 1.025 (1.005-1.030); UROBILINOGEN 0.2 E.U./dl (0.2-1.0)
[2016-08-18 16:47] LABS: URINE REFLEX COMMENT NO (NO); WBC 0-2 wbc/hpf (0-5)
[2016-08-18 17:44] VITALS: BP 186/86
[2016-08-18 20:00] VITALS: BP 126/63
[2016-08-18 20:45] VITALS: BP 126/63
[2016-08-19] VITALS: BP 131/69
[2016-08-19 08:00] VITALS: BP 152/84
[2016-08-19 12:00] VITALS: BP 152/79
[2016-08-19 20:00] VITALS: BP 110/48
[2016-08-20] VITALS: BP 138/48
[2016-08-20 08:00] VITALS: BP 134/82
[2016-08-20 12:00] VITALS: BP 138/67
[2016-08-20 16:00] VITALS: BP 124/55
[2016-08-20 20:00] VITALS: BP 148/79
[2016-08-21] VITALS: BP 146/60
[2016-08-21 08:00] VITALS: BP 148/70
[2016-08-21 12:00] VITALS: BP 138/68
[2016-08-21 12:30] LABS: BODY FLUID TYPE PLEURAL
[2016-08-21 12:46] LABS: BODY FLUID RBC < 1000 /uL; BODY FLUID WBC 117 /uL
[2016-08-21 12:48] LABS: BODY FLUID ALBUMIN 1.7 g/dL; BODY FLUID AMYLASE 38 U/L; BODY FLUID CHOLESTEROL < 50 mg/dl; BODY FLUID GLUCOSE 118 mg/dl; BODY FLUID LDH 93 IU/L; BODY FLUID PROTEIN 2.5 g/dl; BODY FLUID TRIGLYCERIDE 4 mg/dl
[2016-08-21 13:33] LABS: BF LYMPHOCYTES 41 %; BF MACROPHAGES 51 %; BF MESOTHELIALS 4 %; BF NEUTROPHILS 4 %
[2016-08-21 16:00] VITALS: BP 104/52
[2016-08-21 20:00] VITALS: BP 128/53
[2016-08-22] VITALS: BP 142/82
[2016-08-22 08:00] VITALS: BP 138/78
[2016-08-22 12:00] VITALS: BP 138/73
[2016-08-22 16:00] VITALS: BP 148/61
[2016-08-22 20:00] VITALS: BP 132/55
[2016-08-23] VITALS: BP 125/43
[2016-08-23 08:00] VITALS: BP 143/76
[2016-08-23 12:00] VITALS: BP 123/64
[2016-08-23 16:00] VITALS: BP 128/55
== END 2016-08-23 19:49 | disposition home or self-care (01) | DRG 291 ==
LOC: ED 14:47 → EDHOLD 18:56 → 5E 19:40
PROVIDERS: Internal Medicine Critical Care Medicine; Physician Assistant
PROC: 0W993ZX Drainage of Right Pleural Cavity, Percutaneous Approach, Diagnostic (ICD-10-PCS; principal; 2016-08-21)
DX: I50.9 Heart failure, unspecified (principal); J18.1 Lobar pneumonia, unspecified organism; J90 Pleural effusion, not elsewhere classified; I48.2 Chronic atrial fibrillation; G30.1 Alzheimer's disease with late onset; Z79.01 Long term (current) use of anticoagulants; F02.80 Dementia in other diseases classified elsewhere, unspecified severity, without behavioral disturbance, psychotic disturbance, mood disturbance, and anxiety; J98.11 Atelectasis; I11.0 Hypertensive heart disease with heart failure; R29.6 Repeated falls; R62.7 Adult failure to thrive; R91.1 Solitary pulmonary nodule; I49.9 Cardiac arrhythmia, unspecified; Z96.1 Presence of intraocular lens; Z66 Do not resuscitate; R59.1 Generalized enlarged lymph nodes; Z95.0 Presence of cardiac pacemaker; Z98.49 Cataract extraction status, unspecified eye

== ENCOUNTER → 2016-08-31 | Outpatient (CLI) | payer MEDICARE, MEDICAID ==
[~2016-08-31] MED LIST changes: +NAMENDA-28 PO; +PROVENTIL0.09 MG/A1 INH; +TRAZODONE50 MG PO
[2016-09-01 18:09] LABS: ARSENIC BLOOD 6 ug/L (2-23)
== END | disposition home or self-care (01) ==
LOC: LAB 02:50
PROVIDERS: Family Medicine
DX: Z77.098 Contact with and (suspected) exposure to other hazardous, chiefly nonmedicinal, chemicals (principal)

== ENCOUNTER 2016-09-19 10:15 | Inpatient (IN) | payer MEDICARE, MEDICAID ==
[~2016-09-19] VITALS: Ht 162.6 cm; Wt 46.7 kg
--- NOTE | ~2016-09-19 | WRIGHTHP ---
[place], [place] PATIENT HISTORY AND PHYSICAL EXAM [id number] #: [id number] ROOM: 524 DOCTOR: GUANAKITO LOCKETT MD BIRTHDATE: [birth year] DOS: 09/19/2016 HISTORY OF PRESENT ILLNESS: This patient is 86 years old, known to me from previous admissions, was brought in by family members saying that she is more confused. She apparently had fallen out of bed and has had unsteady gait and increased confusion as per the family, was seen in the emergency room, had a CAT scan done, which was negative. The patient was discharged to home. The family brought her back saying that she has increased confusion. This morning, the patient is pretty much at her baseline, she is confused, which was noticed in the last several admissions. She does not voice any complaints. She is curled up in her bed. PAST MEDICAL HISTORY: 1. Significant for last hospitalization for pleural effusion and thoracentesis in July 2014. 2. Alzheimer dementia, late onset. 3. Benign hypertension. 4. Metabolic encephalopathy. 5. Disability with failure to thrive. 6. Chronic atrial fibrillation. 7. Recurrent falls. MEDICATIONS: She is currently on are aspirin 325 daily, Tylenol 650 daily, diltiazem 240 daily, Aricept 10 daily, Marinol 2.5 mg daily, iron 325 daily, Lasix 20 daily, Namenda 28 daily, simvastatin 10 daily, trazodone 50 at bedtime. SOCIAL HISTORY: Nonsmoker. PHYSICAL EXAMINATION: GENERAL: She is awake and alert, but not oriented to time, place or person, mumbles mostly unintelligibly. VITAL SIGNS: Blood pressure is 130/61, pulse is 65, respirations 16, temperature 98.5. LUNGS: Clear. HEART: Regular. ABDOMEN: Soft, scaphoid. EXTREMITIES: Without any edema. LABORATORY DATA: Chest x-ray showed a small pleural effusion. BMP: Glucose 89, BUN 12, creatinine 0.67, sodium 144, potassium 3.3, chloride 106, WBC count is 3.9, hemoglobin 13.6. ASSESSMENT AND PLAN: 1. Adult failure to thrive. The patient lives at home with family members. I am not sure whether there is problem with taking care of her at home, so we are planning to get a social service consult, a PT, OT consult and possibly place the patient. 2. Alzheimer's dementia, already on Namenda, continue medication. 3. Benign hypertension, controlled. 4. Recent fall with a laceration, it was closed with Dermabond. 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 5. Hypokalemia. Supplementation has been ordered both IV and p.o. 6. Possible urinary tract infection. Urinalysis showed no evidence of UTI. Antibiotics were given short term, which can be discontinued. GUANAKITO LOCKETT MD CM:HISPHYS:PATIENT HISTORY AND PHYSICAL EXAMINATION [id number] GUANAKITO LOCKETT MD 09/20/16 0835 interface
[2016-09-19 10:21] VITALS: BP 150/90
[2016-09-19 10:47] LABS: BILIRUBIN NEGATIVE (NEGATIVE); BLOOD NEGATIVE (NEGATIVE); CLARITY CLEAR (CLEAR); COLOR YELLOW (YELLOW); GLUCOSE NEGATIVE (NEGATIVE); KETONE NEGATIVE (NEGATIVE); LEUKO ESTERASE NEGATIVE (NEGATIVE); NITRITE NEGATIVE (NEGATIVE); PROTEIN NEGATIVE (NEGATIVE); SPECIFIC GRAVITY 1.015 (1.005-1.030); UROBILINOGEN 0.2 E.U./dl (0.2-1.0)
[2016-09-19 10:49] LABS: BASO % 0.5 % (0.0-1.0); EOS # 0.1 10*3/uL (0.0-0.4); HEMOGLOBIN 13.6 g/dl (12.0-16.0); LYMPH # 1.2 10*3/uL (1.3-4.4); LYMPH % 29.9 % (27.0-41.0); MEAN CELL VOLUME 92.6 fl (81.0-99.0); MEAN CORPUSCULAR HGB 30.7 pg (27.0-31.0); MEAN CORPUSCULAR HGB CONC 33.2 g/dl (33.0-37.0); MEAN PLATELET VOLUME 10.6 fl (9.6-12.3); MONO # 0.3 10*3/uL (0.1-1.0); MONO % 7.2 % (3.0-9.0); NEUT # 2.4 10*3/uL (2.3-7.9); NEUT % 60.4 % (47.0-73.0); PLATELET COUNT AUTOMATED 122 10*3/uL (130-400); RED BLOOD COUNT 4.43 10*6/uL (4.10-5.10); RED CELL DISTRI WIDTH 14.7 % (0-14.5); WHITE BLOOD COUNT 3.9 10*3/uL (4.8-10.8)
[2016-09-19 10:53] LABS: URINE REFLEX COMMENT NO (NO)
[2016-09-19 10:57] LABS: INTERNATIONAL NORM RATIO 1.1 (2.0-3.5); PROTHROMBIN TIME 12.2 SECONDS (9.0-12.4)
[2016-09-19 11:04] LABS: ALBUMIN 3.6 gm/dl (3.1-4.5); ALKALINE PHOSPHATASE 135 U/L (45-117); BILIRUBIN, TOTAL 0.8 mg/dl (0.2-1.0); BUN 15 mg/dl (7-24); CARBON DIOXIDE 28 mmol/L (21-32); CHLORIDE 105 mmol/L (98-107); EST GLOM FILT AFRICAN AMERICAN > 60 ml/min; GLUCOSE 96 mg/dL (65-99); POTASSIUM 3.2 mmol/L (3.5-5.1); SGOT/AST 23 IU/L (3-35); SGPT/ALT 22 U/L (12-78); SODIUM 146 mmol/L (136-145); TOTAL PROTEIN 6.7 gm/dL (6.4-8.2)
[2016-09-19 11:12] VITALS: BP 163/90
[2016-09-19 14:00] VITALS: BP 141/63
[2016-09-19 20:00] VITALS: BP 120/65
[2016-09-20] VITALS: BP 130/61
[2016-09-20 06:29] LABS: BUN 12 mg/dl (7-24); CARBON DIOXIDE 29 mmol/L (21-32); CHLORIDE 106 mmol/L (98-107); GLUCOSE 89 mg/dL (65-99); POTASSIUM 3.3 mmol/L (3.5-5.1); SODIUM 144 mmol/L (136-145)
[2016-09-20 06:30] LABS: EST GLOM FILT AFRICAN AMERICAN > 60 ml/min
[2016-09-20 08:00] VITALS: BP 140/90
[2016-09-20 12:00] VITALS: BP 112/63
[2016-09-20 16:00] VITALS: BP 133/60
[2016-09-20 20:00] VITALS: BP 158/87
[2016-09-21] VITALS: BP 145/71
[2016-09-21 06:14] LABS: BUN 11 mg/dl (7-24); CARBON DIOXIDE 26 mmol/L (21-32); CHLORIDE 108 mmol/L (98-107); EST GLOM FILT AFRICAN AMERICAN > 60 ml/min; GLUCOSE 83 mg/dL (65-99); POTASSIUM 3.7 mmol/L (3.5-5.1); SODIUM 143 mmol/L (136-145)
[2016-09-21 08:00] VITALS: BP 166/72
[2016-09-21 12:00] VITALS: BP 164/77
[2016-09-21 16:00] VITALS: BP 152/82
[2016-09-21 20:00] VITALS: BP 149/73
[2016-09-22] VITALS: BP 154/68
[2016-09-22 08:00] VITALS: BP 168/77
[2016-09-22 12:00] VITALS: BP 109/55
[2016-09-22 16:00] VITALS: BP 102/81
== END 2016-09-22 18:50 | disposition home health service (06) | DRG 71 ==
LOC: ED 10:15 → EDHOLD 12:16 → 5E 12:16
PROVIDERS: Internal Medicine; Nurse Practitioner Family
DX: G93.41 Metabolic encephalopathy (principal); E44.0 Moderate protein-calorie malnutrition; G30.9 Alzheimer's disease, unspecified; F02.80 Dementia in other diseases classified elsewhere, unspecified severity, without behavioral disturbance, psychotic disturbance, mood disturbance, and anxiety; Z68.1 Body mass index [BMI] 19.9 or less, adult; I10 Essential (primary) hypertension; Z66 Do not resuscitate; E87.6 Hypokalemia; W19.XXXA Unspecified fall, initial encounter; Z51.5 Encounter for palliative care; Z79.82 Long term (current) use of aspirin; Z79.899 Other long term (current) drug therapy; Z98.42 Cataract extraction status, left eye; Z95.0 Presence of cardiac pacemaker; Y93.89 Activity, other specified; Y92.092 Bedroom in other non-institutional residence as the place of occurrence of the external cause; Y99.8 Other external cause status; R26.81 Unsteadiness on feet

== ENCOUNTER 2016-10-01 11:04 | Emergency (ER) | payer MEDICARE, MEDICAID ==
[~2016-10-01] VITALS: Ht 147.3 cm; Wt 52.2 kg
[2016-10-01] MEDS ORDERED: NITROFURANTOIN100 M9 PO (11:26)
== END 2016-10-01 14:59 | disposition home or self-care (01) ==
LOC: ED 11:04
DX: S40.011A Contusion of right shoulder, initial encounter (principal); Z79.82 Long term (current) use of aspirin; Z95.0 Presence of cardiac pacemaker; Z79.899 Other long term (current) drug therapy; W18.30XA Fall on same level, unspecified, initial encounter; Y93.89 Activity, other specified; Y92.009 Unspecified place in unspecified non-institutional (private) residence as the place of occurrence of the external cause; Y99.9 Unspecified external cause status

== ENCOUNTER 2016-10-28 14:23 | Inpatient (IN) | payer MEDICARE ==
[~2016-10-28] VITALS: Ht 152.4 cm; Wt 47.3 kg
--- NOTE | ~2016-10-28 | PR ---
[place], [place] PROGRESS NOTE NAME: OLEG BURGESS UNIT #: [id number] ROOM: 524 DOCTOR: GUANAKITO LOCKETT MD BIRTHDATE: [birth year] DOS: SUBJECTIVE: The patient is about the same, resting comfortably, does not appear to be in any distress. OBJECTIVE: VITAL SIGNS: Graphic trend shows a pressure 123/60, pulse is 60, respirations 18, temperature 98.2. LUNGS: Clear. HEART: Irregular. ABDOMEN: Soft. ASSESSMENT AND PLAN: Alzheimer dementia with metabolic encephalopathy from underlying UTI. Urine culture is growing Proteus mirabilis, which is resistant to Floxin but sensitive to Ceftin. Plan is to discharge the patient to home today on p.o. Ceftin. The family did not want placement. GUANAKITO LOCKETT MD CM:PNTRANS [id number] GUANAKITO LOCKETT MD 10/31/16 0836 interface
--- NOTE | ~2016-10-28 | EKG ---
[place], [place] ELECTROCARDIOGRAM REPORT NAME: OLEG BURGESS UNIT #: [id number] ROOM: 524 DOCTOR: NAZ HAAS MD BIRTHDATE: [birth year] DOS: 10/28/2016 TIME: 1513 hours. Atrial fibrillation with ventricular rate of 73 beats per minute. Occasional paced ventricular beats are also noted. Left ventricular hypertrophy with repolarization changes. An abnormal ECG. No previous tracing is available for comparison. NAZ HAAS MD CM:EKGRPT:ELECTROCARDIOGRAM REPORT [id number] NAZ HAAS MD
--- NOTE | ~2016-10-28 | DS ---
[place], [place] DISCHARGE SUMMARY [id number] #: [id number] ROOM: 524 DOCTOR: GUANAKITO LOCKETT MD BIRTHDATE: [birth year] DOS: 10/31/2016 DIAGNOSES: 1. Urinary tract infection with Proteus mirabilis resistant to Floxin. 2. Acute kidney injury, possibly from urinary tract infection. 3. 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 4. Chronic atrial fibrillation, not a candidate for Coumadin because of repeated falls. HOSPITAL COURSE: The patient is 86 years old, was brought in because the patient is confused as per family. The patient is pretty much at her baseline of confusion with alternative crying and laughing spells. The patient was admitted. IV fluids were given. The kidney injury has improved and her creatinine is back down to 0.4 with a GFR of more than 60. Urine culture showed Proteus mirabilis which is resistant to Floxin. She is placed on Ceftin. The patient is stable and plan is to discharge her to home today to follow up as an outpatient. Social service has been consulted and the family has refused placement. The patient to follow up with the PCP, Dr. Mello. GUANAKITO LOCKETT MD CM:DISCHARG [phone] GUANAKITO LOCKETT MD 11/01/16 1009 interface
--- NOTE | ~2016-10-28 | WRIGHTHP ---
[place], [place] PATIENT HISTORY AND PHYSICAL EXAM [facility] [id number] UNIT #: [id number] ROOM: 524 DOCTOR: GUANAKITO LOCKETT MD BIRTHDATE: [birth year] DOS: 10/28/2016 HISTORY OF PRESENT ILLNESS: This patient is 86 years old. The patient was brought to the Emergency Room by her family stating that she is confused. She was admitted with diagnosis of UTI with metabolic encephalopathy. The patient this morning is her usual self. She is pleasantly confused, which is her baseline. I do not see any change in her mental status from her baseline. The patient cries and laughs for no particular reason. She denies having any complaints today. She does not know where she is. PAST MEDICAL HISTORY: Significant for: 1. Multiple admissions with encephalopathy. The patient would benefit from placement, but the daughter refuses to. 2. Dementia, late onset Alzheimer's. 3. Benign hypertension. 4. Adult failure to thrive. 5. History of atrial fibrillation, not a candidate for Coumadin because of recurrent falls. MEDICATIONS: That the patient is currently on are Tylenol 650 daily, aspirin 325 daily, diltiazem 240 daily, Aricept 10 daily, Namenda 28 mg daily, Remeron 15 at bedtime, simvastatin 10 daily, trazodone 50 at bedtime, vitamin D 50,000 units once a week. SOCIAL HISTORY: Nonsmoker, does not use any alcohol. PHYSICAL EXAMINATION: GENERAL: The patient is awake and alert, pleasantly confused and cries and laughs with evidence of pseudobulbar palsy. VITAL SIGNS: Graphic trend shows blood pressure 116/52, pulse is 60, respirations 16, temperature 97.9. LUNGS: Diminished breath sounds. HEART: Regular. ABDOMEN: Obese, soft, nontender. EXTREMITIES: Without any edema. ASSESSMENT AND PLAN: 1. Metabolic encephalopathy, possibly from the underlying urinary tract infection. Urine culture has been sent. The patient has been placed on IV fluids and IV antibiotics. Had a CT of the abdomen and pelvis done without contrast shows no new pathology except for large volume of stools. 2. Acute kidney injury, slight elevation of BUN and creatinine went up to 27 and 1.07 with a GFR 49, stage 3 renal failure. The patient is getting IV fluids. Repeat labs will be ordered for tomorrow. 3. Dementia with adult failure to thrive. Social Service will be consulted. [place], [place] PATIENT HISTORY AND PHYSICAL EXAM NAME: [facility] [id number] UNIT #: [id number] ROOM: 524 DOCTOR: GUANAKITO LOCKETT MD BIRTHDATE: [birth year] GUANAKITO LOCKETT MD CM:HISPHYS:PATIENT HISTORY AND PHYSICAL EXAMINATION 0 GUANAKITO LOCKETT MD 10/29/16 09 interface
--- NOTE | ~2016-10-28 | PR ---
[place], [place] PROGRESS NOTE NAME: OLEG BURGESS UNIT #: [id number] ROOM: 524 DOCTOR: GUANAKITO LOCKETT MD BIRTHDATE: [birth year] DOS: 10/30/2016 SUBJECTIVE: The patient is resting comfortably, as per nursing staff she does not seem very good. OBJECTIVE: VITAL SIGNS: Graphic trend shows pressure 124/69, pulse is 71, respirations 21, temperature 98.7. LUNGS: Diminished breath sounds, clear. HEART: Regular. ABDOMEN: Soft. EXTREMITIES: Without any edema. LABORATORY DATA: White cell count is 4.3, hemoglobin 10.1, hematocrit 30.4, platelets were 104. Urine culture shows heavy bacteria, identification is not available. ASSESSMENT AND PLAN: 1. Urinary tract infection with metabolic encephalopathy on IV antibiotics and fluids once we have identification, the plan is to discharge her back to home. 2. Primary insomnia. The patient is already on multiple medications including trazodone and Remeron, so no further new medication will be prescribed. 3. Alzheimer dementia with encephalopathy. The family ____ refuse to place her in the longterm. The plan to discharge in the morning. GUANAKITO LOCKETT MD CM:PNTRANS [id number] GUANAKITO LOCKETT MD 10/30/16 1040 interface
[2016-10-28 14:28] VITALS: BP 109/51
[2016-10-28 15:06] LABS: BASO % 0.3 % (0.0-1.0); EOS # 0.1 10*3/uL (0.0-0.4); EOS % 0.9 % (1.0-4.0); HEMOGLOBIN 11.5 g/dl (12.0-16.0); LYMPH % 13.1 % (27.0-41.0); MEAN CELL VOLUME 97.5 fl (81.0-99.0); MEAN CORPUSCULAR HGB CONC 32.9 g/dl (33.0-37.0); MONO # 0.5 10*3/uL (0.1-1.0); MONO % 6.2 % (3.0-9.0); NEUT % 79.2 % (47.0-73.0); PLATELET COUNT AUTOMATED 129 10*3/uL (130-400); RED BLOOD COUNT 3.59 10*6/uL (4.10-5.10); RED CELL DISTRI WIDTH 15.7 % (0-14.5); WHITE BLOOD COUNT 7.6 10*3/uL (4.8-10.8)
[2016-10-28 15:34] LABS: ALBUMIN 3.6 gm/dl (3.1-4.5); BILIRUBIN, TOTAL 0.4 mg/dl (0.2-1.0); BUN 27 mg/dl (7-24); CARBON DIOXIDE 24 mmol/L (21-32); CHLORIDE 110 mmol/L (98-107); EST GLOM FILT AFRICAN AMERICAN 59 ml/min; GLUCOSE 102 mg/dL (65-99); POTASSIUM 3.6 mmol/L (3.5-5.1); SGOT/AST 27 IU/L (3-35); SGPT/ALT 31 U/L (12-78); SODIUM 145 mmol/L (136-145); TOTAL PROTEIN 6.6 gm/dL (6.4-8.2)
[2016-10-28 15:37] LABS: BILIRUBIN NEGATIVE (NEGATIVE); BLOOD 2+ (NEGATIVE); CLARITY TURBID (CLEAR); COLOR YELLOW (YELLOW); GLUCOSE NEGATIVE (NEGATIVE); KETONE NEGATIVE (NEGATIVE); LEUKO ESTERASE 3+ (NEGATIVE); NITRITE NEGATIVE (NEGATIVE); PH 8.5 (5.0-9.0); PROTEIN 2+ (NEGATIVE); SPECIFIC GRAVITY 1.015 (1.005-1.030); UROBILINOGEN 0.2 E.U./dl (0.2-1.0)
[2016-10-28 15:37] LABS: INTERNATIONAL NORM RATIO 1.1 (2.0-3.5); PROTHROMBIN TIME 11.9 SECONDS (9.0-12.4)
[2016-10-28 15:39] LABS: ALKALINE PHOSPHATASE 148 U/L (45-117); TROPONIN I < 0.015 ng/ml (<0.045)
[2016-10-28 16:00] VITALS: BP 108/77
[2016-10-28 16:10] LABS: BACTERIA 4+; MUCOUS 3+; URINE REFLEX COMMENT YES (NO); WBC TNTC wbc/hpf (0-5)
[2016-10-28 17:00] VITALS: BP 108/74
[2016-10-28 18:00] VITALS: BP 114/84
[2016-10-28] MEDS ORDERED: MIRTAZAPINE15 M2 PO (20:36)
[2016-10-28] MEDS ORDERED: VITAMIN D50000 UNIT PO (20:37)
[2016-10-29] VITALS: BP 151/75
[2016-10-29 08:00] VITALS: BP 116/52
[2016-10-29 16:00] VITALS: BP 144/71
[2016-10-30] VITALS: BP 124/69
[2016-10-30 07:12] LABS: BASO % 0.2 % (0.0-1.0); EOS # 0.1 10*3/uL (0.0-0.4); EOS % 2.8 % (1.0-4.0); HEMATOCRIT 30.4 % (37.0-47.0); HEMOGLOBIN 10.1 g/dl (12.0-16.0); LYMPH # 1.2 10*3/uL (1.3-4.4); LYMPH % 26.6 % (27.0-41.0); MEAN CELL VOLUME 98.1 fl (81.0-99.0); MEAN CORPUSCULAR HGB 32.6 pg (27.0-31.0); MEAN CORPUSCULAR HGB CONC 33.2 g/dl (33.0-37.0); MEAN PLATELET VOLUME 10.1 fl (9.6-12.3); MONO # 0.4 10*3/uL (0.1-1.0); NEUT # 2.7 10*3/uL (2.3-7.9); NEUT % 61.2 % (47.0-73.0); PLATELET COUNT AUTOMATED 104 10*3/uL (130-400); RED CELL DISTRI WIDTH 15.6 % (0-14.5); WHITE BLOOD COUNT 4.3 10*3/uL (4.8-10.8)
[2016-10-30 07:42] LABS: CARBON DIOXIDE 24 mmol/L (21-32); CHLORIDE 109 mmol/L (98-107); EST GLOM FILT AFRICAN AMERICAN > 60 ml/min; GLUCOSE 95 mg/dL (65-99); POTASSIUM 3.8 mmol/L (3.5-5.1); SODIUM 142 mmol/L (136-145)
[2016-10-30 07:43] LABS: BUN 15 mg/dl (7-24)
[2016-10-30 12:00] VITALS: BP 151/81
[2016-10-30 16:00] VITALS: BP 156/77
[2016-10-30 20:00] VITALS: BP 137/57
[2016-10-31] VITALS: BP 123/60
[2016-10-31] MEDS ORDERED: CEFUROXIME AXE250 MG PO (07:17)
[2016-10-31 08:00] VITALS: BP 137/69
[2016-10-31 16:00] VITALS: BP 138/68
== END 2016-10-31 19:23 | disposition home health service (06) | DRG 689 ==
LOC: ED 14:23 → 5E 17:52 → EDHOLD 17:52 → 5E 18:13
PROVIDERS: Internal Medicine; Physician Assistant
DX: N39.0 Urinary tract infection, site not specified (principal); G93.41 Metabolic encephalopathy; N17.9 Acute kidney failure, unspecified; R62.7 Adult failure to thrive; F51.01 Primary insomnia; Z51.5 Encounter for palliative care; F02.80 Dementia in other diseases classified elsewhere, unspecified severity, without behavioral disturbance, psychotic disturbance, mood disturbance, and anxiety; G30.9 Alzheimer's disease, unspecified; Z66 Do not resuscitate; B96.4 Proteus (mirabilis) (morganii) as the cause of diseases classified elsewhere; Z95.0 Presence of cardiac pacemaker; Z98.42 Cataract extraction status, left eye; K59.00 Constipation, unspecified; E86.0 Dehydration; Z16.29 Resistance to other single specified antibiotic